=== PATIENT | male | born 1945 | race Caucasian/White ===

== ENCOUNTER 2019-02-24 07:57 | Inpatient (IN) ==
[2019-02-24] MEDS ORDERED: CeFAZolin Syr 2,000MG/20 ML 2,000 MG/20 ML SYRINGE IVPB ONE (08:23)
[2019-02-24] MEDS ORDERED: Ringers Solution, Lactated 1,000 ML IVC SCH ×2 (08:30→09:00)
[2019-02-24] MEDS ORDERED: traMADol 50 MG TABLET PO PRN (08:46)
[2019-02-24] MEDS ORDERED: *HR* OxyCODONE Immed Rel 5 MG TABLET PO PRN ×3 (08:46→18:15)
[2019-02-24] MEDS ORDERED: *HR* Promethazine 25 MG/ML VIAL IVP PRN (08:46)
[2019-02-24] MEDS ORDERED: *HR* HYDROmorphone (PF) 1 MG/ML SYRINGE IVP PRN (08:46)
[2019-02-24] MEDS ORDERED: Dexamethasone 4 MG/ML VIAL ONE (08:55)
[2019-02-24] MEDS ORDERED: Ondansetron 4 MG/2 ML VIAL ONE (08:55)
[2019-02-24] MEDS ORDERED: *HR* Heparin 5,000 UNIT/ML VIAL ONE (08:55)
[2019-02-24] MEDS ORDERED: *HR* Propofol 200 MG/20 ML VIAL IVP ONE (08:55)
[2019-02-24] MEDS ORDERED: Lidocaine -MPF 2% 2 ML VIAL ONE (08:55)
[2019-02-24] MEDS ORDERED: *HR* Succinylcholine 200 MG/10 ML VIAL IVP ONE (08:55)
[2019-02-24] MEDS ORDERED: *HR* FentaNYL (PF) 100 MCG/2 ML VIAL ONE (08:56)
[2019-02-24] MEDS ORDERED: *HR* Rocuronium Bromide 50 MG/5 ML VIAL ONE (08:57)
[2019-02-24] MEDS ORDERED: *HR* Phenylephrine 10 MG/ML VIAL ONE ×2 (09:01→15:17)
[2019-02-24] MEDS ORDERED: *HR* Remifentanil 2 MG VIAL IVP ONE (09:01)
[2019-02-24] MEDS ORDERED: Heparin 1,000 UNITS/500 mL 0 ML ONE (09:01)
[2019-02-24] MEDS ORDERED: Heparin 1,000 UNITS/500 mL 500 ML ONE (10:45)
[2019-02-24] MEDS ORDERED: Bupivacaine-MPF 0.25% 10 ML VIAL ONE ×2 (11:01→14:22)
[2019-02-24] MEDS ORDERED: Protamine Sulfate 50 MG/5 ML VIAL IVP ONE (11:01)
[2019-02-24] MEDS ORDERED: Heparin 1,000 UNITS/500 mL 1,000 ML ONE (11:02)
[2019-02-24] MEDS ORDERED: Vancomycin 1,000 MG, Sodium Chloride IRRigation 1,000 ML IR ONE (11:05)
[2019-02-24] MEDS ORDERED: *HR* Midazolam HCl 2 MG/2 ML VIAL ONE (12:55)
[2019-02-24] MEDS ORDERED: Lidocaine -MPF 2% 5 ML VIAL ONE (13:47)
[2019-02-24] MEDS ORDERED: EPHEDrine 50 MG/ML VIAL ONE (14:38)
[2019-02-24] MEDS ORDERED: *HR* Labetalol 20 MG/4 ML SYRINGE IVP PRN (18:15)
[2019-02-24] MEDS ORDERED: Ondansetron 4 MG/2 ML VIAL IVP PRN (18:15)
[2019-02-24] MEDS ORDERED: 0.9 % Sodium Chloride 1,000 ML IVC SCH (18:15)
[2019-02-24] MEDS ORDERED: *HR* HYDROcodone/Acet 5/325 mg TABLET PO PRN ×2 (18:15)
[2019-02-24] MEDS ORDERED: Naloxone 0.4 MG/ML INJ IVP PRN (18:15)
[2019-02-24] MEDS ORDERED: Acetaminophen 325 MG TABLET PO PRN ×2 (18:15)
[2019-02-24] MEDS: *HR* Metoprolol 5 MG/5 ML VIAL IVP SCH ×2 (18:51→23:49)
[2019-02-25] MEDS: *HR* Metoprolol 5 MG/5 ML VIAL IVP SCH (04:59)
[2019-02-25] MEDS ORDERED: *HR* Heparin 5,000 UNIT/ML VIAL SQ SCH ×2 (06:00)
[2019-02-25 08:00] VITALS: BP 122/73
[2019-02-25] MEDS ORDERED: amLODIPine 5 MG TABLET PO SCH (09:00)
[2019-02-25] MEDS ORDERED: Aspirin 325 MG TABLET PO SCH (09:00)
== END 2019-02-25 09:26 | disposition home or self-care (01) | DRG 39 ==
LOC: SAMDAY 07:57 → 2NNU 18:18
PROVIDERS: ADMIT Surgery; ATTEND Surgery